=== PATIENT | male | born 1950 | race Caucasian/White ===

== ENCOUNTER 2020-08-07 17:06 | Observation (INO) | payer MEDICARE, OTHER, SELFPAY ==
--- NOTE | ~2020-08-07 | XR_ITS ---
EXAMINATION: XR chest 2V 08/07/2020 17:44 INDICATION: Left-sided chest pain PROCEDURE: 2 view chest COMPARISON: 08/13/2016 FINDINGS: The lungs are clear. The cardiomediastinal silhouette is within normal limits. There are no pleural effusions. There is no pneumothorax suspected. There are surgical clips overlying the lo wer neck anteriorly. IMPRESSION: 1: NO ACUTE CARDIOPULMONARY DISEASE. Reviewed, dictated and finalized at location A.
--- NOTE | 2020-08-07 17:07 | ECG_ITS ---
Measurements Intervals [place] Rate: 65 P: 81 [place]: 258 QRS: -12 QRSD: 94 T: 52 QT: 394 QTc: 411 Interpretive Statements SINUS RHYTHM WITH FIRST DEGREE AV BLOCK VOLTAGE CRITERIA FOR LVH CONSIDER INFERIOR INFARCT, AGE INDETERMINATE BASELINE ARTIFACT- I, II, III, AVF, V1 ABNORMAL ECG Electronically Signed On 08-07-2020 20:15:08 CDT by Alfredo Meek D.O.
[2020-08-07 17:08] VITALS: BP 200/90; PULSE 62; RESP 16; TEMP 36.1; O2SAT 99
[2020-08-07 17:35] LABS: Basophils Absolute Auto 0.1 K/mm3 (0.0-0.1); Basophils Percent Auto 1.1 % (0.2-1.2); Eosinophils Absolute Auto 0.1 K/mm3 (0-0.3); Eosinophils Percent Auto 2.4 % (0-4.4); Hematocrit 42.1 % (42.0-52.0); Hemoglobin 13.3 g/dL (14.0-18.0); Immature Granulocyte Absolute 0.01 K/mm3 (0.00-0.031); Immature Granulocyte Percent A 0.2 % (0-0.5); Lymphocytes Absolute Auto 0.56 K/mm3 (0.9-3.2); Mean Corpuscular HGB Conc 31.6 g/dl (32-36); Mean Corpuscular Hemoglobin 30.8 pg (26-34); Mean Corpuscular Volume 97.5 fl (80-100); Mean Platelet Volume 10.5 fl (7.4-10.4); Monocytes Absolute Auto 0.8 K/mm3 (0.1-0.6); Monocytes Percent Auto 16.7 % (2.6-8.5); Neutrophils Absolute Auto 3.2 K/mm3 (1.3-6.7); Neutrophils Percent Auto 67.6 % (45.5-73.1); Platelet Count Result 227 k/mm3 (150-375); Red Blood Count 4.32 M/mm3 (4.6-6.20); Red Cell Distribution Width 13.4 % (11.5-14.5); White Blood Count 4.7 K/mm3 (4.5-10.0)
[2020-08-07 17:45] LABS: Partial Thromboplastin Time 28.5 SECONDS (22.3-36.8); Prothrombin Time 12.9 Seconds (11.1-14.7)
[2020-08-07 17:46] LABS: Anion Gap 8 mmol/L (8-16); Blood Urea Nitrogen 17 mg/dL (9-20); Calcium 8.9 mg/dL (8.4-10.2); Carbon Dioxide 27 mmol/L (22-30); Chloride 103 mmol/L (98-107); Estimated CRCL calculation 95 ml/min; Estimated Glomerular Filt Rate > 60; Glucose 103 mg/dL (75-110); Potassium 4.2 mmol/L (3.4-5.0); Sodium 138 mmol/L (137-145)
[2020-08-07 17:58] LABS: Troponin I < 0.012 ng/mL (0.000-0.034)
[2020-08-07 18:15] VITALS: BP 153/80; PULSE 59; RESP 14; O2SAT 97
[2020-08-07] MEDS: ASPIRIN 81 MG CHEWABLE TABLET 324 MG PO (18:23)
[2020-08-07 19:00] VITALS: BP 161/79; PULSE 59; RESP 16; O2SAT 98
--- NOTE | 2020-08-07 19:18 | ED.CHESTPAIN ---
HPI - Chest Pain General Chief Complaint: Chest Pain Stated Complaint: chest pain Time Seen by Provider: 08/07/20 17:30 Source: patient Mode of arrival: ambulatory Limitations: no limitations History of Present Illness HPI narrative: 69-year-old with a history of coronary artery disease, hypertension, hyperlipidemia here with complaints of having intermittent chest pain mostly in the left side of the chest on and off since this morning. Patient states that he had multiple episodes since this morning. He denies any shortness of breath. He does not correlate with exertion. No history of nausea or vomiting or diaphoresis with the pain. He states that he had stent placed 4 years ago and did not have any stress test after that. MD complaint: chest pain Pertinent past history: coronary artery disease Onset (ago): day(s) (1) Timing of current episode: episodic Pain location: left chest Pain radiation: none Severity: moderate Quality: sharp Relieving factors: nothing Risk Factors Coronary artery disease risk factors: hyperlipidemia and hypertension Related Data Home Medications Medication Instructions Recorded Confirmed aspirin [Adult Aspirin EC Low 08/07/20 Strength] atorvastatin 08/07/20 08/07/20 enalapril maleate 08/07/20 ferrous sulfate 08/07/20 levothyroxine 08/07/20 metoprolol succinate 08/07/20 Allergies Allergy/AdvReac Type Severity Reaction Status Date / Time No Known Allergies Allergy Mild Verified 08/07/20 18:50 Review of Systems Review of Systems: All systems reviewed & are unremarkable except as noted in HPI and below Constitutional: Constitutional: Reports no additional constitutional complaints Eyes: Eyes: Reports no additional eye complaints ENT: Reports system reviewed and no additional complaints, except as documented Cardiovascular: Cardiovascular: Reports as per HPI Respiratory: Respiratory: Reports no additional respiratory complaints Gastrointestinal: Gastrointestinal: Reports no additional gastrointestinal complaints Musculoskeletal: Musculoskeletal: Reports no additional musculoskeletal complaints Neurologic: Reports system reviewed and no additional complaints, except as documented [facility] Family History Family History Father Family history of kidney disease, Onset Age: 81 Family history of Alzheimer's disease, Onset Age: 81 Family history of heart disease in male family member before age 55, Onset Age: 81 Patient's father is Mother Patient's mother is Sibling Patient's sister is Social History Social History Smoking status: Never smoker Alcohol intake: current Gender identity (if verbalized by the patient): Male Exam Narrative: Exam Narrative: GENERAL: Well-appearing, well-nourished, and in no acute distress. HEAD: Normocephalic, atraumatic. EYES: PERRLA and EOMI. ENT: Nares clear, Mucous membranes moist. NECK: Supple. CHEST: Clear to auscultation. No respiratory distress. HEART: Regular rate and rhythm. No murmur heard. Normal peripheral pulses. ABDOMEN: Soft, nontender, nondistended, normal active bowel sounds. EXTREMITIES: Normal range of motion. No edema. SKIN: Warm, dry, no rash. NEURO: No focal deficits. Alert and oriented x3. PSYCH: Normal mood and affect. Course Course Emergency Course: States that he had multiple episodes of minor chest pain while he was here in the ER. However discussed labs, EKG and chest x-ray findings with the patient. Also discussed with Dr. Rodriguez who agreed to admit the patient [facility]. Vital Signs Vital signs: Vital Signs Temperature 36.1 C L 08/07/20 17:08 Pulse Rate 62 08/07/20 17:08 Respiratory Rate 16 08/07/20 17:08 Blood Pressure 200/90 H 08/07/20 17:08 Pulse Oximetry 99 08/07/20 17:08 Temperature 36.1 C L 08/07/20 17:08 Pulse Rate 62 08/07
--- NOTE | 2020-08-07 20:57 | ADMGEN ---
This patient, Adair Lee, was admitted to IMU Room 209-01. Patient/family oriented to hospital policies and general routines including ID bracelet, bed and alarms, visiting hours, pain management, procedures, bathroom and other care routines, personal items, smoking policy, room service/diet, and visiting hours. Information on how to activate the Rapid Response Team has been discussed. Patient/Family are encouraged to report perceived risks to care and to ask questions if they do not understand what they are told or what they should do.
[2020-08-07 21:00] VITALS: BP 177/95; PULSE 58; RESP 20; TEMP 36.4; O2SAT 94
[2020-08-07 21:09] LABS: Troponin I < 0.012 ng/mL (0.000-0.034)
[2020-08-07 22:00] VITALS: PULSE 55
[2020-08-07 23:18] VITALS: PULSE 66
[2020-08-07] MEDS: METOPROLOL TARTRATE 25 MG TABLET PO (23:18)
[2020-08-07] MEDS: ATORVASTATIN 40 MG TABLET PO (23:18)
[2020-08-07] MEDS: ENALAPRIL MALEATE 5 MG TABLET PO (23:18)
[2020-08-07] MEDS: FERROUS SULFATE 324 MG TABLET PO (23:18)
[2020-08-07] MEDS: NITROGLYCERIN OINTMENT 1 INCH DOSE TRANSDERM (23:19)
[2020-08-08] VITALS (8 sets, daily range): BP systolic 116–146; BP diastolic 58–76; PULSE 48–65; RESP 18–22; TEMP 35.9–36.4; O2SAT 96–100
[2020-08-08 00:37] LABS: Troponin I < 0.012 ng/mL (0.000-0.034)
[2020-08-08] MEDS: LEVOTHYROXINE SODIUM 75 MCG TABLET PO (05:31)
[2020-08-08] MEDS: NITROGLYCERIN OINTMENT 1 INCH DOSE TRANSDERM (05:31)
[2020-08-08] MEDS: FERROUS SULFATE 324 MG TABLET PO (09:52)
[2020-08-08] MEDS: ENALAPRIL MALEATE 5 MG TABLET PO (09:53)
[2020-08-08] MEDS: ASPIRIN 81 MG ENTERIC TABLET PO (09:53)
[2020-08-08] MEDS: PANTOPRAZOLE SOD SESQUIHYDRATE 20 MG TAB PO (09:53)
[2020-08-08] MEDS: ENOXAPARIN 40 MG/0.4 ML SYRINGE SUB-Q (09:53)
--- NOTE | 2020-08-08 10:02 | PM.SD ---
Same Day Admit/Disch: HPI History of Present Illness Chief complaint: Unstable angina Narrative: Adair Lee is a 69 year old male who was admitted overnight for observation for chest pain. History of CAD. Also h/o stroke in October 2016 The patient had a non-STEMI and a proximal Left anterior descending stent placed in 2015. His EF was 55% in a 4.0 x 16 mm everolimus RYAN stent placed. He has not had any heart problems since then. He is followed at the [facility] by nurse practitioner (or PA) Lucie Olmedo. He was last seen by Dr. Cali March 2017 feeling well. He has been feeling well and able to walk 20-40 minutes every day. Yesterday started having brief mild stabbing left-sided chest pains which were described as a rubbing or stinging pain lasting for about 2nd. However they occurred off and on all day. There were no aggravating or relieving factors and there is no associated symptoms. It was nontender, nonpleuritic and non positional. Since a continued, he thought he should get checked out and came to the emergency room. After they gave him some nitroglycerin he has had no further problems. The patient has borderline hypertension hyperlipidemia but no diabetes or smoking. No exertional symptoms. PMFSH Past Medical History Medical History (Updated 08/08/20 @ 10:45 by Liz Matias MD) CAD (coronary artery disease) 08/2016 and STEMI. 4.0 x 16 mm drug-eluting stent to the proximal Left anterior descending GERD (gastroesophageal reflux disease) Hemorrhoids History of stroke October 2016 had left-sided weakness and slurred speech. Given tPA at [facility] with complete recovery. Patient says he had a cerebral aneurysm but no coiling done so this may not be the case. Hyperlipidemia Hypertension Thyroid disease Tonsillectomy planned Surgical History Surgical History (Updated 08/08/20 @ 10:33 by Liz Matias MD) H/O hemorrhoidectomy H/O thyroidectomy Family History Family History (Updated 08/08/20 @ 10:34 by Liz Matias MD) Father Family history of heart disease in male family member before age 55, Onset Age: 81 Family history of kidney disease, Onset Age: 81 Patient's father is Family history of Alzheimer's disease, Onset Age: 81 Mother Patient's mother is Breast cancer Sibling Patient's sister is Pancreatic cancer Sibling Brain cancer Social History Social History (Updated 08/08/20 @ 10:35 by Liz Matias MD) Social History: 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 He is engaged, no children. Smoking status: Never smoker Alcohol intake: former Substance use: never Gender identity (if verbalized by the patient): Male Spiritual care concerns: No Same Day Admit/Disch: Med Pre-admit Medications Home Medications Medication Instructions Recorded Confirmed Type aspirin [Adult Aspirin EC Low 81 mg PO Q12H 08/07/20 08/07/20 History Strength] atorvastatin 40 mg PO HS 08/07/20 08/07/20 History enalapril maleate 5 mg PO Q12H 08/07/20 08/07/20 History ferrous sulfate 325 mg PO Q12H 08/07/20 08/07/20 History levothyroxine 75 mcg PO DAILY 08/07/20 08/07/20 History metoprolol tartrate 25 mg PO HS 08/07/20 08/07/20 History omeprazole 20 mg PO DAILY 08/07/20 08/07/20 History Exam Narrative: Exam Narrative: Pleasant older male in no distress, obese Const: General: cooperative, healthy appearing, comfortable and no acute distress Nutritional Appearance: obese Orientation/consciousness: patient oriented x3 HENMT: Head: normal to inspection and normocephalic Ears: external ears normal General nose exam: Normal external nose present Face and sinus: normal facial exam Eyes: General: appearance normal, both eyes and all related
== END 2020-08-08 12:13 | disposition home or self-care (01) ==
LOC: ANHED 19:35 → ANHIMU 20:15
PROVIDERS: Emergency Medicine; Admitting Provider Internal Medicine Cardiovascular Disease; Emergency Provider Family Medicine; Visit Provider Internal Medicine Cardiovascular Disease
DX: R07.89 Other chest pain (principal); I25.10 Atherosclerotic heart disease of native coronary artery without angina pectoris; I25.2 Old myocardial infarction; I10 Essential (primary) hypertension; E78.5 Hyperlipidemia, unspecified; Z95.5 Presence of coronary angioplasty implant and graft; Z86.73 Personal history of transient ischemic attack (TIA), and cerebral infarction without residual deficits
CPT/HCPCS: 36415; 71046; 80048; 84484; 85025; 85610; 85730; 93005; 96372; 99285; A9270; G0378; J1650

== ENCOUNTER 2021-08-17 12:48 | Emergency (ER) | payer MEDICARE, OTHER, SELFPAY ==
[2021-08-17 13:01] VITALS: BP 165/83; PULSE 64; RESP 18; TEMP 36.4; O2SAT 99
--- NOTE | 2021-08-17 13:10 | ED.EYEPROB ---
HPI - Eye Problem General Chief complaint: Eye Problems Stated complaint: Eye Pain Time Seen by Provider: 08/17/21 13:10 Source: patient Mode of arrival: ambulatory Limitations: no limitations History of Present Illness HPI Narrative: Adair Lee is a 70 yo male with a PMH of high cholesterol, hypertension, hypothyroid, GERD, who [facility] with a red area in the inner canthus and sclera of the right eye; states he woke up with it this morning but his fianc?e pointed out that it needed to be looked at Related Data Home Medications Medication Instructions Recorded Confirmed aspirin 81 mg PO Q12H 08/07/20 08/17/21 atorvastatin 40 mg PO HS 08/07/20 08/17/21 enalapril maleate 5 mg PO Q12H 08/07/20 08/17/21 ferrous sulfate 325 mg PO Q12H 08/07/20 08/17/21 levothyroxine 75 mcg PO DAILY 08/07/20 08/17/21 metoprolol tartrate 25 mg PO HS 08/07/20 08/17/21 omeprazole 20 mg PO DAILY 08/07/20 08/17/21 Allergies Allergy/AdvReac Type Severity Reaction Status Date / Time No Known Allergies Allergy Mild Verified 08/17/21 13:00 Review of Systems Review of Systems: CONSTITUTIONAL: Denies fever, chills, sweats. EYES: Denies visual changes, right eye redness near the inner canthus, discharge. ENT: Denies rhinorrhea, congestion, sore throat, otalgia. CARDIOVASCULAR: Denies chest pain, palpitations, edema. RESPIRATORY: Denies dyspnea, wheezing, cough GASTROINTESTINAL: Denies abdominal pain, nausea, vomiting, diarrhea. GENITOURINARY: Denies dysuria, hematuria, abnormal discharge SKIN: Denies rash or itching. NEUROLOGIC: Denies numbness, or focal weakness. PSYCHIATRIC: Denies anxiety or depression. [facility] Past Medical History Medical History CAD (coronary artery disease) 08/2016 and STEMI. 4.0 x 16 mm drug-eluting stent to the proximal Left anterior descending GERD (gastroesophageal reflux disease) Hemorrhoids History of stroke October 2016 had left-sided weakness and slurred speech. Given tPA at [facility] with complete recovery. Patient says he had a cerebral aneurysm but no coiling done so this may not be the case. 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 He is engaged, no children. Smoking status: Never smoker Alcohol intake: former Substance use: never Gender identity (if verbalized by the patient): Male Spiritual care concerns: No Comments At time of signature, I agree with nursing past medical, surgical, social and family history. There is no relevant family history pertinent to the presenting complaint. Exam Narrative: GENERAL: This is a well-nourished, well-developed patient, in no distress. HEAD: normocephalic, atraumatic. EYES: PERRL. Sclera clear/whiteon L; small appears to be hemorrhage in the inner side of right eye near the inner canthus; vision is grossly intact.(Visual acuity test done) EARS: External ears normal, . Hearing grossly intact. NOSE: External nose normal without nasal discharge, nares without redness, no rhinorrhea. THROAT: Mucous membranes
== END 2021-08-17 13:35 | disposition home or self-care (01) ==
PROVIDERS: Emergency Provider Nurse Practitioner
DX: H11.31 Conjunctival hemorrhage, right eye (principal); K21.9 Gastro-esophageal reflux disease without esophagitis; E78.5 Hyperlipidemia, unspecified; I10 Essential (primary) hypertension; E07.9 Disorder of thyroid, unspecified; Z86.73 Personal history of transient ischemic attack (TIA), and cerebral infarction without residual deficits; Z95.5 Presence of coronary angioplasty implant and graft; I25.2 Old myocardial infarction
CPT/HCPCS: 99212; G0463

== ENCOUNTER 2022-03-12 09:51 | Emergency (ER) | payer MEDICARE, OTHER, SELFPAY ==
[2022-03-12 10:10] VITALS: BP 156/75; PULSE 72; RESP 16; TEMP 35.9; O2SAT 97
--- NOTE | 2022-03-12 10:13 | ED.DENTAL ---
HPI - Dental/Oral General Chief complaint: Dental/Oral Stated complaint: tooth pain Time Seen by Provider: 03/12/22 10:13 Source: patient, RN notes reviewed and old records reviewed Mode of arrival: ambulatory Limitations: no limitations History of Present Illness HPI Narrative: 71-year-old male presents to the [facility] with complaints of swelling, pain to the left upper dental area. States this started yesterday. Tried stopping by his dental provider and states that they were not in this morning. MD Complaint: tooth pain Onset (ago): day(s) (1) Related Data Home Medications Medication Instructions Recorded Confirmed aspirin 81 mg tablet,delayed 81 mg PO Q12H 08/07/20 03/12/22 release atorvastatin 40 mg PO HS 08/07/20 03/12/22 enalapril maleate 5 mg PO Q12H 08/07/20 03/12/22 ferrous sulfate 325 mg PO Q12H 08/07/20 03/12/22 levothyroxine 75 mcg PO DAILY 08/07/20 03/12/22 metoprolol tartrate 25 mg tablet 25 mg PO HS 08/07/20 03/12/22 omeprazole 20 mg capsule,delayed 20 mg PO DAILY 08/07/20 03/12/22 release Allergies Allergy/AdvReac Type Severity Reaction Status Date / Time No Known Allergies Allergy Mild Verified 03/12/22 10:10 Review of Systems Review of Systems: All systems reviewed & are unremarkable except as noted in HPI and below Constitutional: Constitutional: Reports no additional constitutional complaints, Denies chills and Denies fever(s) Eyes: Eyes: Reports no additional eye complaints ENT: Reports as per HPI Comments: Dental pain, left upper Cardiovascular: Cardiovascular: Reports no additional cardiovascular complaints, Denies chest pain and Denies dyspnea Respiratory: Respiratory: Reports no additional respiratory complaints, Denies cough and Denies dyspnea Musculoskeletal: Musculoskeletal: Reports no additional musculoskeletal complaints Integumentary/Breasts: Skin/Breast: Reports system reviewed and no additional complaints, except as docu Neurologic: Reports system reviewed and no additional complaints, except as documented Psychiatric: Psychiatric: Reports no additional psychiatric complaints Allergic/Immunologic: Allergic/Immunologic: Reports no additional allergic/immunologic complaints PMFSH Past Medical History Medical History CAD (coronary artery disease) 08/2016 and STEMI. 4.0 x 16 mm drug-eluting stent to the proximal Left anterior descending GERD (gastroesophageal reflux disease) Hemorrhoids History of stroke October 2016 had left-sided weakness and slurred speech. Given tPA at [facility] with complete recovery. Patient says he had a cerebral aneurysm but no coiling done so this may not be the case. 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 He is engaged, no children. Smoking status: Never smoker Alcohol intake: former Substance use: never Gender identity (if verbalized by the patient): Male Spiritual care concerns: No Comments At the time of my signature, I reviewed and agree with the nursing past medical, surgical, social,
== END 2022-03-12 10:24 | disposition home or self-care (01) ==
PROVIDERS: Emergency Provider Nurse Practitioner
DX: K04.7 Periapical abscess without sinus (principal); K02.9 Dental caries, unspecified; I25.10 Atherosclerotic heart disease of native coronary artery without angina pectoris; K21.9 Gastro-esophageal reflux disease without esophagitis; Z86.73 Personal history of transient ischemic attack (TIA), and cerebral infarction without residual deficits; E78.5 Hyperlipidemia, unspecified; I10 Essential (primary) hypertension; E89.0 Postprocedural hypothyroidism; Z79.82 Long term (current) use of aspirin; Z95.5 Presence of coronary angioplasty implant and graft
CPT/HCPCS: 99213; G0463

== ENCOUNTER 2022-08-27 20:49 | Emergency (ER) | payer MEDICARE, OTHER, SELFPAY ==
--- NOTE | ~2022-08-27 | CT_ITS ---
EXAMINATION: CT abdomen pelvis w con INDICATION: Right lower quadrant pain TECHNIQUE: Computed tomographic images of the abdomen and pelvis were obtained after the administrati on of 100 cc of Omnipaque 350 intravenous contrast. The dose-length product (DLP) was 1425.39 mGy-cm. Automated exposure control and iterative reconstruction technique were employed. COMPARISON: None available FINDINGS: Minimal dependent atelectasis is present in the lung bases. The heart size is normal. Cysts of the liver measure up to 13 mm in the left hepatic lobe. The liver is diffusely low in attenuation when compared with the spleen, consistent with hepatic steatosis. Punctate calcifications in an othe rwise normal spleen likely represent healed granulomatous disease. The pancreas, gallbladder, and adr enal glands are normal. There is a 5 mm nonobstructing stone of the right kidney lower pole. There is a 10 mm cyst of the left kidney. There is a 3 mm stone of the right mid/distal ureter. The appendix is normal. No pathologically enlarged abdominal or pelvic lymph nodes are identified. There is calcif ied atherosclerosis of the aorta and many of the other arteries. There is no free intraperitoneal gas or evidence of bowel obstruction. There is severe lumbar spondylosis. IMPRESSION: 1. 3 mm stone in the mid/distal right ureter. 2. Nonobstructing right nephrolithiasis. 3. Diffuse hepatic steatosis. Reviewed, dictated and finalized at location F. CLASSIFIER
[2022-08-27 21:13] VITALS: BP 147/99; PULSE 77; RESP 19; TEMP 36.6; O2SAT 100
[2022-08-27] MEDS: PROCHLORPERAZINE EDISYLATE 10 MG/2 ML VIAL IV PUSH (21:49)
[2022-08-27] MEDS: MORPHINE SULFATE (*CRX) 4 MG/ML INJ IV PUSH (21:49)
[2022-08-27 21:50] LABS: Basophils Absolute Auto 0.1 K/mm3 (0.0-0.1); Basophils Percent Auto 0.8 % (0.2-1.2); Eosinophils Absolute Auto 0.2 K/mm3 (0-0.3); Eosinophils Percent Auto 2.1 % (0-4.4); Hematocrit 43.5 % (42.0-52.0); Hemoglobin 14.2 g/dL (14.0-18.0); Immature Granulocyte Absolute 0.03 K/mm3 (0.00-0.031); Immature Granulocyte Percent A 0.3 % (0-0.5); Lymphocytes Absolute Auto 1.53 K/mm3 (0.9-3.2); Lymphocytes Percent Auto 14.3 % (18.3-44.2); Mean Corpuscular HGB Conc 32.6 g/dl (32-36); Mean Corpuscular Hemoglobin 31.3 pg (26-34); Mean Platelet Volume 10.8 fl (7.4-10.4); Monocytes Absolute Auto 1.1 K/mm3 (0.1-0.6); Neutrophils Absolute Auto 7.8 K/mm3 (1.3-6.7); Neutrophils Percent Auto 72.5 % (45.5-73.1); Platelet Count Result 293 k/mm3 (150-375); Red Blood Count 4.53 M/mm3 (4.6-6.20); Red Cell Distribution Width 14.4 % (11.5-14.5); White Blood Count 10.7 K/mm3 (4.5-10.0)
[2022-08-27] MEDS: SODIUM CHLORIDE 0.9% IV 1,000 ML 999 ML IV CONT (21:50)
[2022-08-27] MEDS: DICYCLOMINE HCL INJ 20 MG/2 ML VIAL IM (21:50)
[2022-08-27 22:03] LABS: Alanine Aminotransferase 31 U/L (6-50); Albumin Level 4.8 g/dL (3.5-5.1); Alkaline Phosphatase 59 U/L (38-126); Anion Gap 17 mmol/L (8-16); Aspartate Amino Transferase 42 U/L (17-59); Bilirubin,Total 0.6 mg/dL (0.2-1.3); Blood Urea Nitrogen 16 mg/dL (9-20); Calcium 8.9 mg/dL (8.4-10.2); Carbon Dioxide 22 mmol/L (22-30); Chloride 101 mmol/L (98-107); Estimated CRCL calculation 93 ml/min; Estimated Glomerular Filt Rate > 60; Glucose 143 mg/dL (65-110); Lipase 21 U/L (23-300); Potassium 3.8 mmol/L (3.4-5.0); Sodium 140 mmol/L (137-145)
[2022-08-27 23:03] LABS: Appearance Urine Clear (Clear); Bilirubin Urine Negative (Negative); Blood Urine 3+ (Negative); Color Urine Yellow (Yellow); Glucose Urine UA Negative (Negative); Ketones Urine Trace mg/dL (Negative); Leukocyte Esterase Ur Negative LEU/UL (Negative); Nitrate Urine Negative (Negative); Protein Urine 1+ mg/dL (Negative); Urobilinogen Urine 0.2 mg/dL (<2.0); pH Urine 5.5 (5.0-9.0)
[2022-08-27 23:18] LABS: Add Urine Microscopic? YES; Bacteria Urine Trace /hpf; Mucus Urine Rare /lpf; RBC Urine >75 /hpf (0-2); Squamous Epithelial Cell Urine Rare /hpf (Few)
[2022-08-27] MEDS: HYDROmorphone HCL INJ (*CRX) 1 MG/ML SYR IV PUSH (23:34)
[2022-08-28 00:02] VITALS: BP 153/76
--- NOTE | 2022-08-28 00:12 | ED.GENADULT ---
HPI - General Adult General Chief complaint: Abdominal Pain Stated complaint: RLQ abdominal pain after eating this evening Time Seen by Provider: 08/27/22 21:28 History of Present Illness HPI narrative: Patient is a 71-year-old gentleman who presents the emergency department with chief complaint of abdominal pain nausea and vomiting. The patient reports that he ate some chicken at [employer] and then also had used some recreational drugs that he had acquired the patient reports that he started having severe abdominal pain nausea and vomiting and unable to get comfortable. Patient reports that the symptoms or not improved by anything nor they worsened by anything. Related Data Home Medications Medication Instructions Recorded Confirmed aspirin 81 mg tablet,delayed 81 mg PO Q12H 08/07/20 03/12/22 release atorvastatin 40 mg PO HS 08/07/20 03/12/22 enalapril maleate 5 mg PO Q12H 08/07/20 03/12/22 ferrous sulfate 325 mg PO Q12H 08/07/20 03/12/22 levothyroxine 75 mcg PO DAILY 08/07/20 03/12/22 metoprolol tartrate 25 mg tablet 25 mg PO HS 08/07/20 03/12/22 omeprazole 20 mg capsule,delayed 20 mg PO DAILY 08/07/20 03/12/22 release Allergies Allergy/AdvReac Type Severity Reaction Status Date / Time No Known Allergies Allergy Mild Verified 08/27/22 20:50 Review of Systems Review of Systems: A 10 system review of systems was completed on the patient and is negative except for what is stated in the HPI. Nursing and ancillary documentation was reviewed. [facility] Past Medical History Medical History CAD (coronary artery disease) 08/2016 and STEMI. 4.0 x 16 mm drug-eluting stent to the proximal Left anterior descending GERD (gastroesophageal reflux disease) Hemorrhoids History of stroke October 2016 had left-sided weakness and slurred speech. Given tPA at [facility] with complete recovery. Patient says he had a cerebral aneurysm but no coiling done so this may not be the case. 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 He is engaged, no children. Smoking status: Never smoker Alcohol intake: former Substance use: never Gender identity (if verbalized by the patient): Male Spiritual care concerns: No Exam Narrative: GENERAL: Well-appearing, well-nourished, appears to be in moderate discomfort actively vomiting. HEAD: Normocephalic, atraumatic. EYES: PERRLA and EOMI. ENT: Nares clear, no rhinorrhea or epistaxis. Mucous membranes moist. NECK: Supple. CHEST: Clear to auscultation. No respiratory distress. HEART: Regular rate and rhythm. No murmur heard. Normal peripheral pulses. ABDOMEN: Soft, diffuse mild tenderness, nondistended, normal active bowel sounds. EXTREMITIES: Normal range of motion. No edema. SKIN: Warm, dry, no rash. NEURO: No focal deficits. Alert and oriented x3. PSYCH: Normal mood and affect. Course Course Emergency Course: CT scan showed evidence of a distal 3 mm stone in the right ureter Vital Signs Vital signs: Vital Signs Te
[2022-08-28 02:00] VITALS: BP 130/82; PULSE 90; RESP 18; O2SAT 97
== END 2022-08-28 02:00 | disposition home or self-care (01) ==
PROVIDERS: Emergency Provider Emergency Medicine
DX: N20.2 Calculus of kidney with calculus of ureter (principal); I25.10 Atherosclerotic heart disease of native coronary artery without angina pectoris; I25.2 Old myocardial infarction; E78.5 Hyperlipidemia, unspecified; I10 Essential (primary) hypertension; E89.0 Postprocedural hypothyroidism; K21.9 Gastro-esophageal reflux disease without esophagitis; Z86.73 Personal history of transient ischemic attack (TIA), and cerebral infarction without residual deficits; K76.0 Fatty (change of) liver, not elsewhere classified
CPT/HCPCS: 36415; 74177; 80053; 81001; 83690; 85025; 87086; 96361; 96372; 96374; 96375; 99284; J0500; J0780; J1170; J2270; J7030; Q9967

== ENCOUNTER 2024-03-02 23:30 | Emergency (ER) | payer MEDICARE, OTHER, SELFPAY ==
--- NOTE | ~2024-03-02 | CT_ITS ---
Non-contrast CT scan of the Abdomen and Pelvis Clinical indication: Kidney stone Technique: 2.5 mm axial scans were obtained through the abdomen and pelvis without intravenous or or al contrast. Dose reduction technique was used on this scan by utilizing automated exposure control a nd iterative reconstruction technique. The dose-length product (DLP) was 1450.98 mGy-cm. COMPARISON: 08/27/2022 Findings: Images through the lung bases reveal no abnormalities. There is a 6 mm stone at the very proximal right ureter, with mild right hydronephrosis. No left marianne l or left ureteral stone. No left hydronephrosis. The liver, spleen, pancreas, and adrenals appear normal. Gallbladder sludge present. There are athero sclerotic calcifications of the aorta. There is no evidence of bowel obstruction. There are small intraluminal/submucosal lipoma at the dist al descending colon (axial image 146). Images through the pelvis were performed. There is no evidence of ascites or lymphadenopathy. Urinary bladder unremarkable. No pelvic mass seen. No ascites. Impression: 6 mm proximal right ureteral stone with mild right hydronephrosis. Additional findings, as above. Reviewed, dictated and finalized at location M. Impression: 6 mm proximal right ureteral stone with mild right hydronephrosis. Additional findings, as above.
[2024-03-02 23:27] VITALS: BP 213/89; PULSE 100; RESP 18; TEMP 36.7; O2SAT 96
[2024-03-02 23:40] LABS: Basophils Percent Auto 0.3 % (0.2-1.2); Hematocrit 36.7 % (42.0-52.0); Hemoglobin 11.6 g/dL (14.0-18.0); Immature Granulocyte Absolute 0.06 K/mm3 (0.00-0.031); Immature Granulocyte Percent A 0.4 % (0-0.5); Lymphocytes Absolute Auto 0.57 K/mm3 (0.9-3.2); Lymphocytes Percent Auto 4.1 % (18.3-44.2); Mean Corpuscular HGB Conc 31.6 g/dl (32-36); Mean Corpuscular Volume 98.1 fl (80-100); Mean Platelet Volume 10.6 fl (7.4-10.4); Monocytes Absolute Auto 1.1 K/mm3 (0.1-0.6); Neutrophils Absolute Auto 12.2 K/mm3 (1.3-6.7); Neutrophils Percent Auto 87.2 % (45.5-73.1); Platelet Count Result 289 k/mm3 (150-375); Red Blood Count 3.74 M/mm3 (4.6-6.20); Red Cell Distribution Width 14.6 % (11.5-14.5)
--- NOTE | 2024-03-02 23:51 | ED.ABDPAIN ---
HPI - Abdominal Pain General Chief Complaint: Abdominal Pain Stated Complaint: KIDNEY STONES, HYPERTENSIVE Time Seen by Provider: 03/02/24 23:45 Source: patient Mode of arrival: ambulatory Limitations: no limitations History of Present Illness HPI narrative: This is a 73-year-old male who presents to the ED with chief complaint of right flank and right lower quadrant pain intermittent for the past week. Reports he was diagnosed with kidney stone at the [facility] earlier and left the hospital. Reports he was supposed to be seen by Urology and have a procedure done for stone removal but decided that he did not like the other hospital. He would rather be here because it is closer to home. States I figured I would just come here and get my operation.? He is unable to elaborate what operation this might be or the name of his previous urologist. States that he felt pretty well at home earlier however he started having increased pain and vomiting just prior to arrival. Denies fevers, chills or any further complaints. Related Data Home Medications Medication Instructions Recorded Confirmed aspirin 81 mg tablet,delayed 81 mg PO Q12H 08/07/20 03/12/22 release atorvastatin 40 mg PO HS 08/07/20 03/12/22 enalapril maleate 5 mg PO Q12H 08/07/20 03/12/22 ferrous sulfate 325 mg PO Q12H 08/07/20 03/12/22 levothyroxine 75 mcg PO DAILY 08/07/20 03/12/22 metoprolol tartrate 25 mg tablet 25 mg PO HS 08/07/20 03/12/22 omeprazole 20 mg capsule,delayed 20 mg PO DAILY 08/07/20 03/12/22 release Allergies Allergy/AdvReac Type Severity Reaction Status Date / Time No Known Allergies Allergy Mild Verified 03/02/24 23:32 Review of Systems Review of Systems: All systems as dictated in HPI [facility] Past Medical History Medical History CAD (coronary artery disease) 08/2016 and STEMI. 4.0 x 16 mm drug-eluting stent to the proximal Left anterior descending GERD (gastroesophageal reflux disease) Hemorrhoids History of stroke October 2016 had left-sided weakness and slurred speech. Given tPA at [facility] with complete recovery. Patient says he had a cerebral aneurysm but no coiling done so this may not be the case. 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 He is engaged, no children. Smoking status: Never smoker Alcohol intake: former Substance use: never Gender identity (if verbalized by the patient): Male Spiritual care concerns: No Exam Narrative: GENERAL: Well-appearing, well-nourished, and in no acute distress. HEAD: Normocephalic, atraumatic. EYES: PERRLA and EOMI. ENT: Nares clear, no rhinorrhea or epistaxis. Mucous membranes moist. Oropharynx without tonsillar hypertrophy exudate or other lesions. NECK: Supple. No adenopathy or masses. CHEST: No respiratory distress. Clear to auscultation. No wheezes rales or rhonchi HEART: Regular rate and rhythm. No murmur heard. Normal peripheral pulses. ABDOMEN: Soft, nontender, nondistended, normal active bowel sounds. MSK
[2024-03-02 23:56] LABS: Alanine Aminotransferase 44 U/L (6-50); Albumin Level 4.6 g/dL (3.5-5.1); Alkaline Phosphatase 66 U/L (38-126); Anion Gap 10 mmol/L (4-12); Aspartate Amino Transferase 101 U/L (17-59); Blood Urea Nitrogen 24 mg/dL (9-20); Carbon Dioxide 22 mmol/L (22-30); Chloride 102 mmol/L (98-107); Estimated Glomerular Filt Rate 54; Glucose 141 mg/dL (65-110); Potassium 4.4 mmol/L (3.4-5.0); Sodium 134 mmol/L (137-145)
[2024-03-02 23:56] LABS: Appearance Urine Clear (Clear); Bacteria Urine None Seen /hpf; Bilirubin Urine Negative (Negative); Blood Urine 2+ (Negative); Color Urine Yellow (Yellow); Glucose Urine UA Negative (Negative); Ketones Urine 1+ mg/dL (Negative); Leukocyte Esterase Ur Negative LEU/UL (Negative); Nitrate Urine Negative (Negative); Non Pathogenic Casts 0-2; Protein Urine Trace mg/dL (Negative); Specific Grav Ur 1.017 (1.001-1.035); Squamous Epithelial Cell Urine None Seen /hpf (Few); WBC Urine 0-5 /hpf (0-3)
[2024-03-03 00:01] LABS: Add Urine Microscopic? YES
[2024-03-03] MEDS: HYDROmorphone HCL INJ (*CRX) 1 MG/ML SYR 0.5 MG IV PUSH (00:23)
[2024-03-03] MEDS: ONDANSETRON INJ 4 MG/2 ML VIAL IV PUSH (00:24)
[2024-03-03] MEDS: SODIUM CHLORIDE 0.9% IV 1,000 ML 999 ML IV CONT (00:24)
[2024-03-03 02:23] VITALS: BP 162/79; PULSE 99; RESP 17; O2SAT 97
== END 2024-03-03 02:28 | disposition home or self-care (01) ==
PROVIDERS: Emergency Medicine; Emergency Provider Physician Assistant
DX: N13.2 Hydronephrosis with renal and ureteral calculous obstruction (principal); I25.10 Atherosclerotic heart disease of native coronary artery without angina pectoris; I25.2 Old myocardial infarction; K21.9 Gastro-esophageal reflux disease without esophagitis; I10 Essential (primary) hypertension; E78.5 Hyperlipidemia, unspecified; E89.0 Postprocedural hypothyroidism; Z86.73 Personal history of transient ischemic attack (TIA), and cerebral infarction without residual deficits; Z79.82 Long term (current) use of aspirin
CPT/HCPCS: 36415; 74176; 80053; 81001; 85025; 96361; 96374; 96375; 99284; J1170; J2405; J7030

== ENCOUNTER 2024-03-05 20:14 | Emergency (ER) | payer MEDICARE, OTHER, SELFPAY ==
--- NOTE | ~2024-03-05 | CT_ITS ---
EXAMINATION: CT abdomen pelvis w con DATE: 03/05/2024 22:46 INDICATION: Right lower quadrant abdominal pain, nausea and vomiting TECHNIQUE: Computed tomography (CT) of the abdomen and pelvis was performed with 100 mL Omnipaque-350 intravenous contrast. Automated exposure control and iterative reconstruction technique were employe d. The dose-length product was 1297.55 mGy-cm. COMPARISON: 03/02/2024 FINDINGS: Mild discoid atelectasis at the lingula. Heart size is normal. Atherosclerotic coronary artery calcif ication. No pericardial or pleural effusion. 12 mm left hepatic lobe cyst. Gallbladder, spleen and bi lateral adrenal glands are normal. There is moderate fatty atrophy of the pancreas. Bilateral low-att enuation renal cysts the largest on the left measuring 1.6 cm. 7 x 5 x 5 mm at least partially obstru cting stone at the right ureteropelvic junction with mild right hydronephrosis and delayed right neph rogram. There is an additional 1 mm stone at a lower pole calyx of the left kidney. Mild diverticulos is along the sigmoid colon without adjacent inflammatory stranding to suggest diverticulitis. Unchang ed 2.2 x 1.6 x 1.5 cm submucosal lipoma in the distal descending colon. Small bowel and appendix are normal. Bladder is normal. No free intraperitoneal gas or fluid. No pathologically enlarged abdominal or pelvic lymphadenopathy. Moderate to severe lower thoracic lower lumbar spondylosis. There is ante rior and posterior fusion without instrumentation at L3-L4. IMPRESSION: 1. Unchanged 7 x 5 x 5 mm at least partially obstructing stone at the right ureteropelvic junction wi th mild right hydronephrosis and delayed nephrogram. Reviewed, dictated and finalized at location A. IMPRESSION: 1. Unchanged 7 x 5 x 5 mm at least partially obstructing stone at the right ure teropelvic junction with mild right hydronephrosis and delayed nephrogram.
[2024-03-05 20:18] VITALS: BP 148/103; PULSE 92; RESP 17; TEMP 36.2; O2SAT 96
[2024-03-05 20:29] LABS: Basophils Absolute Auto 0.1 K/mm3 (0.0-0.1); Eosinophils Absolute Auto 0.1 K/mm3 (0-0.3); Eosinophils Percent Auto 1.5 % (0-4.4); Hemoglobin 11.9 g/dL (14.0-18.0); Immature Granulocyte Absolute 0.01 K/mm3 (0.00-0.031); Immature Granulocyte Percent A 0.1 % (0-0.5); Lymphocytes Absolute Auto 0.94 K/mm3 (0.9-3.2); Lymphocytes Percent Auto 10.8 % (18.3-44.2); Mean Corpuscular HGB Conc 31.3 g/dl (32-36); Mean Corpuscular Hemoglobin 30.6 pg (26-34); Mean Corpuscular Volume 97.7 fl (80-100); Mean Platelet Volume 10.6 fl (7.4-10.4); Monocytes Absolute Auto 0.9 K/mm3 (0.1-0.6); Monocytes Percent Auto 10.4 % (2.6-8.5); Neutrophils Absolute Auto 6.7 K/mm3 (1.3-6.7); Neutrophils Percent Auto 76.2 % (45.5-73.1); Platelet Count Result 353 k/mm3 (150-375); Red Blood Count 3.89 M/mm3 (4.6-6.20); Red Cell Distribution Width 13.9 % (11.5-14.5); White Blood Count 8.7 K/mm3 (4.5-10.0)
--- NOTE | 2024-03-05 20:39 | PC.NURSE ---
When patient was getting blood drawn and when urine being scanned in and sent to lab. Patient repeatedly states I know last time you guys gave me something that really helped with the pain and even helped me sleep. I need some more of that.
[2024-03-05 20:42] LABS: Alanine Aminotransferase 59 U/L (6-50); Albumin Level 4.5 g/dL (3.5-5.1); Alkaline Phosphatase 63 U/L (38-126); Anion Gap 11 mmol/L (4-12); Aspartate Amino Transferase 87 U/L (17-59); Bilirubin,Total 0.6 mg/dL (0.2-1.3); Blood Urea Nitrogen 26 mg/dL (9-20); Calcium 9.6 mg/dL (8.4-10.2); Carbon Dioxide 23 mmol/L (22-30); Chloride 104 mmol/L (98-107); Estimated CRCL calculation 50 ml/min; Estimated Glomerular Filt Rate 46; Glucose 127 mg/dL (65-110); Lipase 25 U/L (23-300); Potassium 4.4 mmol/L (3.4-5.0); Sodium 138 mmol/L (137-145)
[2024-03-05 20:48] LABS: Appearance Urine Clear (Clear); Bacteria Urine None Seen /hpf; Bilirubin Urine Negative (Negative); Blood Urine Negative (Negative); Color Urine Dark Yellow (Yellow); Glucose Urine UA Negative (Negative); Ketones Urine Trace mg/dL (Negative); Leukocyte Esterase Ur Trace LEU/UL (Negative); Nitrate Urine Negative (Negative); Non Pathogenic Casts 0-2; Protein Urine Negative (Negative); Specific Grav Ur 1.029 (1.001-1.035); Squamous Epithelial Cell Urine None Seen /hpf (Few); WBC Urine 0-5 /hpf (0-3)
[2024-03-05 21:01] LABS: Add Urine Microscopic? YES
--- NOTE | 2024-03-05 21:19 | PC.NURSE ---
2118-ANSWERED CALL LIGHT. PATIENT REQUESTING SOMETHING FOR PAIN. ADVISED PATIENT I COULD NOT ADMINISTER ANYTHING WITHOUT PHYSICIAN SEEING HIM. EXPLAINED TO PATIENT HE IS NEXT TO BE SEEN BY PROVIDER. DESPITE REQUEST TO REMAIN ON STRETCHER, PATIENT REFUSES. PATIENT CURRENTLY SEATED IN VISITORS' CHAIR STATING IT IS MORE COMFORTABLE THAN THAT THING .
--- NOTE | 2024-03-05 21:23 | PC.NURSE ---
2122-AGAIN ANSWERED PATIENT'S CALL LIGHT. PATIENT STATES I JUST WANT TO REPORT I GOT RID OF A BIG CHUNK OF BILE . PATIENT C/O NAUSEA.
--- NOTE | 2024-03-05 22:22 | PC.NURSE ---
Sangita, pt niece, called stating if pt is d/c she can pick him up. Can be reached at [phone]
[2024-03-05] MEDS: BISACODYL 10 MG SUPPOSITORY RECTAL (23:03)
--- NOTE | 2024-03-05 23:55 | ED.ABDPAIN ---
HPI - Abdominal Pain General Chief Complaint: Abdominal Pain Stated Complaint: kidney pain - known large stone and no BM x 5 days Time Seen by Provider: 03/05/24 21:23 History of Present Illness HPI narrative: Patient with history of kidney stones recently diagnosed kidney stone here few days ago presents here with persistent right-sided pain, he has not followed up with the urologist yet because he does not like them, he is also having constipation. He does have issues of constipation normally and does take MiraLax and recently started taking prune juice also, last BM was 5 days ago. Related Data Home Medications Medication Instructions Recorded Confirmed aspirin 81 mg tablet,delayed 81 mg PO Q12H 08/07/20 03/12/22 release atorvastatin 40 mg PO HS 08/07/20 03/12/22 enalapril maleate 5 mg PO Q12H 08/07/20 03/12/22 ferrous sulfate 325 mg PO Q12H 08/07/20 03/12/22 levothyroxine 75 mcg PO DAILY 08/07/20 03/12/22 metoprolol tartrate 25 mg tablet 25 mg PO HS 08/07/20 03/12/22 omeprazole 20 mg capsule,delayed 20 mg PO DAILY 08/07/20 03/12/22 release Allergies Allergy/AdvReac Type Severity Reaction Status Date / Time No Known Allergies Allergy Mild Verified 03/05/24 20:23 Review of Systems Review of Systems: All systems reviewed & are unremarkable except as noted in HPI and below PMFSH Past Medical History Medical History CAD (coronary artery disease) 08/2016 and STEMI. 4.0 x 16 mm drug-eluting stent to the proximal Left anterior descending GERD (gastroesophageal reflux disease) Hemorrhoids History of stroke October 2016 had left-sided weakness and slurred speech. Given tPA at [facility] with complete recovery. Patient says he had a cerebral aneurysm but no coiling done so this may not be the case. 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 He is engaged, no children. Smoking status: Never smoker Alcohol intake: former Substance use: never Gender identity (if verbalized by the patient): Male Spiritual care concerns: No Exam Narrative: EXAMINATION OF ORGAN SYSTEMS/BODY AREAS: Constitutional: Vital signs per nursing GENERAL:[No acute distress, non-toxic appearing.] HEAD: Normal with no signs of head trauma. EYES: EOMI, conjunctiva normal ENT: Hearing grossly intact LUNGS: Nonlabored breathing. HEART: [Regular rate and rhythm] ABD: [Soft], [nontender to palpation] EXT: Normal range of motion SKIN: [No rashes or lesions.] NEURO: [Alert and oriented x 3. No gross focal sensory or strength deficits.] PSYCH: Normal affect Course Vital Signs Vital signs: Vital Signs Temperature 97.2 F L 03/05/24 20:18 Pulse Rate 92 03/05/24 20:18 Respiratory Rate 17 03/05/24 20:18 Blood Pressure 148/103 H 03/05/24 20:18 Pulse Oximetry 96 03/05/24 20:18 Oxygen Delivery Room Air 03/05/24 20:18 Temperature 97.2 F L 03/05/24 20:18 Pulse Rate 92 03/05/24 20:18 Respiratory Rate 17 03/05/24 20:18 Blood Pressure 148/103 H
== END 2024-03-05 23:31 | disposition home or self-care (01) ==
PROVIDERS: Emergency Provider Emergency Medicine
DX: N13.2 Hydronephrosis with renal and ureteral calculous obstruction (principal); I25.10 Atherosclerotic heart disease of native coronary artery without angina pectoris; I10 Essential (primary) hypertension; I25.2 Old myocardial infarction; E78.5 Hyperlipidemia, unspecified; E89.0 Postprocedural hypothyroidism; Z79.82 Long term (current) use of aspirin; Z79.899 Other long term (current) drug therapy; Z86.73 Personal history of transient ischemic attack (TIA), and cerebral infarction without residual deficits
CPT/HCPCS: 36415; 74177; 80053; 81001; 83690; 85025; 99284; A9270; Q9967

== ENCOUNTER 2025-07-14 09:58 | Emergency (ER) | payer MEDICARE, OTHER, SELFPAY ==
--- NOTE | ~2025-07-14 | XR_ITS ---
EXAMINATION: XR foot RT min 3V, 07/14/2025 10:35 CDT HISTORY: great toe injury COMPARISON: No comparisons available. Findings: Nondisplaced fracture proximal aspect of the distal phalanx first digit Calcifications are noted of the plantar fascia with a large calcaneal spur No significant degenerative changes. Soft tissues unremarkable. Impression: Fracture detailed above Reviewed, dictated and finalized at location P. Impression: Fracture detailed above
[2025-07-14 10:02] VITALS: BP 179/93; PULSE 57; RESP 18; TEMP 36.4; O2SAT 97
--- NOTE | 2025-07-14 10:34 | ED.GENADULT ---
HPI - General Adult General Chief complaint: Extremity Injury, Lower Stated complaint: R toe injury Time Seen by Provider: 07/14/25 10:11 History of Present Illness HPI narrative: Adair Lee is a 74-year-old male who presents today after mechanical ground level fall tripping on his right great toe. bleeding noted across the top of his toe, denies hitting his head, denies LOC. Denies hx of DM Related Data Home Medications ?Medication ?Instructions ?Recorded ?Confirmed ?Last Taken ?Type aspirin 81 mg tablet,delayed 81 mg PO Q12H 08/07/20 03/12/22 08/17/21 History release 81 mg atorvastatin 40 mg PO HS 08/07/20 03/12/22 08/17/21 History 40 mg enalapril maleate 5 mg PO Q12H 08/07/20 03/12/22 08/17/21 History 5 mg ferrous sulfate 325 mg PO Q12H 08/07/20 03/12/22 08/17/21 History 325 mg levothyroxine 75 mcg PO DAILY 08/07/20 03/12/22 08/17/21 History 75 mcg metoprolol tartrate 25 mg tablet 25 mg PO HS 08/07/20 03/12/22 08/17/21 History 25 mg omeprazole 20 mg capsule,delayed 20 mg PO DAILY 08/07/20 03/12/22 08/17/21 History release 20 mg Allergies Allergy/AdvReac Type Severity Reaction Status Date / Time No Known Allergies Allergy Mild Verified 03/05/24 20:23 Review of Systems Review of Systems: All systems reviewed & are unremarkable except as noted in HPI and below PMFSH Past Medical History Medical History Hypertension Hyperlipidemia Tonsillectomy planned GERD (gastroesophageal reflux disease) Thyroid disease Hemorrhoids History of stroke October 2016 had left-sided weakness and slurred speech. Given tPA at [facility] with complete recovery. Patient says he had a cerebral aneurysm but no coiling done so this may not be the case. CAD (coronary artery disease) 08/2016 and STEMI. 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 He is engaged, no children. Smoking status: Never smoker Alcohol intake: former Substance use: never Gender identity (if verbalized by the patient): Male Spiritual care concerns: No Exam Narrative: GENERAL: Well-appearing, well-nourished, and in no acute distress. HEAD: Normocephalic, atraumatic. EYES: PERRLA and EOMI. ENT: Nares clear, no rhinorrhea or epistaxis. Mucous membranes moist. Oropharynx without tonsillar hypertrophy exudate or other lesions. NECK: Supple. No adenopathy or masses. No carotid bruits or JVD CHEST: Clear to auscultation. No respiratory distress. No wheezes rales or rhonchi HEART: Regular rate and rhythm. No murmur heard. Normal peripheral pulses. ABDOMEN: Soft, nontender, nondistended, normal active bowel sounds. EXTREMITIES: R great toe with laceration across the top of the toe proximal to nail bed + slight oozing of blood noted, neurovascular intact SKIN: Warm, dry, no rash. NEURO: No focal deficits. Alert and oriented x3. PSYCH: Normal mood and affect. Course Vital Signs Vital signs: Vital Signs Temperature 36.4 C L 07/14/25 10:02 Pulse Rate 57 L 07/14/25 10:02 Respiratory Rate 18 07/14/25 10:02 Blood Pressure 179/93 H 07/14/25 10:02 Pulse Oximetry 97 07/14/25 10:02 Oxygen Delivery Room Air 07/14/25 10:02 Temperature 36.4 C L 07/14/25 10:02 Pulse Rate 57 L 07/14/25 10:02 Respiratory Rate 18 07/14/25 10:02 Blood Pressure 179/93 H 07/14/25 10:02 Pulse Oximetry 97 07/14/25 10:02 Oxygen Delivery Room Air 07/14/25 10:02 Procedures Laceration Laceration 1: Date: 07/14/25 Time: 12:26 Site: lower extremity Side (If applicable): right Size (cm): 7 Description: linear Depth: simple, single layer Local Anesthetic: lidocaine 2% (digital block to great toe ) Amount of anesthesia used (mL): 5 Pre-repair: wound explored, irrigated and irrigated extensively ====== Skin Level ====== Skin layer closed with: nylon Size (cm): 4-0 Number of sutures: 7 Technique: simple, interrupted ====== Subcutaneous Layer ====== ====== Muscle Layer ====== ====== Tendon Layer ====== Medical Decision Making MDM Narrative Medical decision making narrative: R great toe with laceration across the top of the toe proximal to nail bed + slight oozing of blood noted, neurovascular intact concern for fracture/ dislocation / open fracture plan to check an XR, update Tdap - he states his pain is only about a 2/10 at this time X-ray -Nondisplaced fracture proximal aspect of the distal phalanx first digit With the nondisplaced fracture on x-ray and the laceration across the great toe consult with Podiatry , who recommends closing the laceration, encouraged Betadine paint daily to prevent infection and p.o. antibiotics to prevent infection and he will see him outpatient in his clinic. Laceration is approximately 7 cm in length across the great toe closed with 7 size 4-0 sutures with 3 of them going through the toenail. Patient was anesthetized with a digital block with 2% lidocaine which was successful. After patient motion of the thighs he was thoroughly irrigated with sterile saline and prepped with moderate amount of Betadine then closed with the sutures. Patient provided strict wound care instructions that Dr. Houser recommended Patient provided with postop shoe encouraged Tylenol and ibuprofen for pain as needed close follow-up with Podiatry encouraged and strict return precautions provided Medical Records Medical records reviewed: Yes I reviewed the external patient's medical records. Vital Signs Vital Signs: Vital Signs Temperature 36.4 C L 07/14/25 10:02 Pulse Rate 57 L 07/14/25 10:02 Respiratory Rate 18 07/14/25 10:02 Blood Pressure 179/93 H 07/14/25 10:02 Pulse Oximetry 97 07/14/25 10:02 Oxygen Delivery Room Air 07/14/25 10:02 Temperature 36.4 C L 07/14/25 10:02 Pulse Rate 57 L 07/14/25 10:02 Respiratory Rate 18 07/14/25 10:02 Blood Pressure 179/93 H 07/14/25 10:02 Pulse Oximetry 97 07/14/25 10:02 Oxygen Delivery Room Air 07/14/25 10:02 Vitals reviewed Imaging Data Radiologist's impression: Impressions Foot X-Ray 07/14/25 10:55 Impression: Fracture detailed above Discharge Plan Discharge Clinical Impression: Laceration of toe Qualifiers: Encounter type: initial encounter Toe: great toe Damage to nail status: unspecified Foreign body presence: without foreign body Laterality: right Qualified Code(s): S91.111A - Laceration without foreign body of right great toe without damage to nail, initial encounter Fracture of toe Qualifiers: Encounter type: initial encounter Toe: great toe Phalanx: distal Fracture alignment: nondisplaced Laterality: right Patient Disposition: Home Condition: Stable Instructions: Antibiotic Form, Care For Your Stitches (ED), Toe Fracture (ED) Additional Instructions: Continue to cleanse your laceration on your great toe once daily with Betadine and keeping it covered with dry gauze. Your sutures will need to be removed in 10-14 days. Please call today to make a follow-up appointment with Podiatry as we discussed continue to wear the postop shoe you may bear weight as tolerated on that foot. Continue to take the cephalexin antibiotic to prevent infection 3 times daily for 1 week. If he should develop any new or worsening symptoms or signs of infection to your wound return to the emergency room. Patient Language: Ghanaian Prescriptions: New cephalexin 500 mg capsule 500 mg PO Q8H 7 Days Qty: 21 0RF No Action penicillin V potassium 500 mg tablet 500 mg PO Q12H 10 Days Qty: 20 0RF aspirin 81 mg Tablet,Delayed Release (Dr/Ec) 81 mg PO Q12H atorvastatin 40 mg PO HS enalapril maleate 5 mg PO Q12H ferrous sulfate 325 mg PO Q12H levothyroxine 75 mcg PO DAILY omeprazole 20 mg Capsule,Delayed Release(Dr/Ec) 20 mg PO DAILY metoprolol tartrate 25 mg Tablet 25 mg PO HS ibuprofen 800 mg tablet 800 mg PO TID PRN (Reason: pain) Qty: 30 0RF tamsulosin [Flomax] 0.4 mg capsule 0.4 mg PO DAILY Qty: 10 0RF ondansetron 4 mg tablet,disintegrating 4 mg PO Q8H PRN (Reason: nausea and vomiting) Qty: 10 0RF hydrocodone-acetaminophen 5-325 mg tablet 1 tablet PO Q8H PRN (Reason: pain) Qty: 14 0RF ondansetron 4 mg tablet,disintegrating 4 mg PO Q8H PRN (Reason: nausea and vomiting) Qty: 10 0RF tamsulosin [Flomax] 0.4 mg capsule 0.4 mg PO DAILY Qty: 10 0RF Follow-up/Referrals: Tato Houser Jr., DPM [Physician, Podiatry] - 3 Days UNKNOWN,DOCTOR [Non-Staff] Time of Disposition: 12:22
[2025-07-14] MEDS: TETANUS,DIPHTHERIA,AC PERTUSSIS ADULT (0.5 ML) BOOSTRIX IM (11:07)
== END 2025-07-14 12:41 | disposition home or self-care (01) ==
PROVIDERS: Emergency Provider Nurse Practitioner Family
DX: S92.414A Nondisplaced fracture of proximal phalanx of right great toe, initial encounter for closed fracture (principal); S91.111A Laceration without foreign body of right great toe without damage to nail, initial encounter; Z23 Encounter for immunization; I10 Essential (primary) hypertension; I25.2 Old myocardial infarction; I25.10 Atherosclerotic heart disease of native coronary artery without angina pectoris; E89.0 Postprocedural hypothyroidism; E78.5 Hyperlipidemia, unspecified; K21.9 Gastro-esophageal reflux disease without esophagitis; Z86.73 Personal history of transient ischemic attack (TIA), and cerebral infarction without residual deficits; W01.0XXA Fall on same level from slipping, tripping and stumbling without subsequent striking against object, initial encounter
CPT/HCPCS: 12002; 73630; 90471; 90715; 99284